=== PATIENT | male | born 1965 | race African-American/Black ===

== ENCOUNTER 2019-04-30 04:52 | Emergency (ER) | payer SELFPAY ==
[~2019-04-30] VITALS: Ht 177.8 cm; Wt 80.0 kg
--- NOTE | 2019-04-30 05:04 | PHYS DOC ---
Adult General Chief Complaint Chief Complaint: MECHANICAL FALL HPI HPI Patient is a 54 year old -[place] male who is brought to the ER by EMS due to a fall reportedly. EMS cannot provide much in the way of details. The patient appears to be intoxicated and he does admit to drinking alcohol last night; he states he drinks 2 beers. States that he fell when going from the living room to the bedroom. Complains of right wrist pain and also pain across his chest. He states that he could not breathe initially but this has since resolved. The patient is a very poor historian. He complains of a "throbbing" on the entire right side of his body. Blood pressure was soft and initially but has improved with IV fluid hydration. No reported recent sickness. The patient did defecate on himself. (RADHA AGRAWAL DO) Review of Systems Review of Systems All other systems were reviewed and found to be within normal limits, except as documented in this note. (RADHA AGRAWAL DO) Current Medications Current Medications Current Medications Medications (Trade) Dose Ordered Sig/Rob Start Time Stop Time Status Last Admin Dose Admin Ibuprofen (Motrin) 800 mg 1X ONCE 04/30/19 07:30 04/30/19 07:31 DC Sodium Chloride 1,000 ml @ 1,000 mls/hr 1X ONCE 04/30/19 05:15 04/30/19 06:14 DC 04/30/19 05:24 1,000 MLS/HR (BRYCE STARKS MD) Allergies Allergies Allergies Coded Allergies Type Severity Reaction Last Updated Verified No Known Drug Allergies 04/30/19 No (BRYCE STARKS MD) Physical Exam Physical Exam Constitutional: Well developed, well nourished, no acute distress, non-toxic appearance. [] HENT: Normocephalic, atraumatic, bilateral external ears normal, oropharynx moist, no oral exudates, nose normal. [] Eyes: PERRLA, EOMI, conjunctiva normal, no discharge. [] Neck: Normal range of motion, no tenderness, supple, no stridor. [] Cardiovascular:Heart rate regular rhythm, no murmur [] Lungs & Thorax: Bilateral breath sounds clear to auscultation [] Abdomen: Bowel sounds normal, soft, no tenderness, no masses, no pulsatile masses. [] Skin: Warm, dry, no erythema, no rash. [] Back: No tenderness, no CVA tenderness. [] Extremities: Tenderness palpation right wrist, no cyanosis, no clubbing, ROM intact, no edema. [] Neurologic: No focal neurologic deficits noted. Patient thought extremity. He does appear to be slightly intoxicated. (RADHA AGRAWAL DO) Current Patient Data Vital Signs Vital Signs Date Time Temp Pulse Resp B/P (MAP) Pulse Ox O2 Delivery O2 Flow Rate FiO2 04/30/19 06:27 85 18 97 04/30/19 04:52 98.5 102/59 (73) 98.5 (BRYCE STARSK MD) Lab Values Laboratory Tests Test 04/30/19 05:15 White Blood Count 3.0 x10^3/uL (4.0-11.0) L Red Blood Count 4.34 x10^6/uL (4.30-5.70) Hemoglobin 10.7 g/dL (13.0-17.5) L Hematocrit 34.3 % (39.0-53.0) L Mean Corpuscular Volume 79 fL (79-100) Mean Corpuscular Hemoglobin 25 pg (25-35) Mean Corpuscular Hemoglobin Concent 31 g/dL (31-37) Red Cell Distribution Width 20.2 % (11.5-14.5) H Platelet Count 85 x10^3/uL (140-400) L Neutrophils (%) (Auto) 29 % (31-73) L Lymphocytes (%) (Auto) 53 % (24-48) H Monocytes (%) (Auto) 10 % (0-9) H Eosinophils (%) (Auto) 7 % (0-3) H Basophils (%) (Auto) 1 % (0-3) Neutrophils # (Auto) 0.9 x10^3/uL (1.8-7.7) L Lymphocytes # (Auto) 1.6 x10^3/uL (1.0-4.8) Monocytes # (Auto) 0.3 x10^3/uL (0.0-1.1) Eosinophils # (Auto) 0.2 x10^3/uL (0.0-0.7) Basophils # (Auto) 0.0 x10^3/uL (0.0-0.2) Platelet Estimate Pending Sodium Level 145 mmol/L (136-145) Potassium Level 3.8 mmol/L (3.5-5.1) Chloride Level 107 mmol/L (98-107) Carbon Dioxide Level 25 mmol/L (21-32) Anion Gap 13 (6-14) Blood Urea Nitrogen 10 mg/dL (8-26) Creatinine 1.3 mg/dL (0.7-1.3) Estimated GFR (Cockcroft-Gault) 69.1 Glucose Level 148 mg/dL (70-99) H Calcium Level 7.8 mg/dL (8.5-10.1) L Troponin I Quantitative < 0.017 ng/mL (0.000-0.055) Ethyl Alcohol Level 283 mg/dL (0-10) H Laboratory Tests 04/30/19 05:15 Laboratory Tests 04/30/19 05:15 (BRYCE STARKS MD) Lab Values Laboratory Tests Test 04/30/19 05:15 White Blood Count 3.0 x10^3/uL (4.0-11.0) L Red Blood Count 4.34 x10^6/uL (4.30-5.70) Hemoglobin 10.7 g/dL (13.0-17.5) L Hematocrit 34.3 % (39.0-53.0) L Mean Corpuscular Volume 79 fL (79-100) Mean Corpuscular Hemoglobin 25 pg (25-35) Mean Corpuscular Hemoglobin Concent 31 g/dL (31-37) Red Cell Distribution Width 20.2 % (11.5-14.5) H Platelet Count 85 x10^3/uL (140-400) L Neutrophils (%) (Auto) 29 % (31-73) L Lymphocytes (%) (Auto) 53 % (24-48) H Monocytes (%) (Auto) 10 % (0-9) H Eosinophils (%) (Auto) 7 % (0-3) H Basophils (%) (Auto) 1 % (0-3) Neutrophils # (Auto) 0.9 x10^3/uL (1.8-7.7) L Lymphocytes # (Auto) 1.6 x10^3/uL (1.0-4.8) Monocytes # (Auto) 0.3 x10^3/uL (0.0-1.1) Eosinophils # (Auto) 0.2 x10^3/uL (0.0-0.7) Basophils # (Auto) 0.0 x10^3/uL (0.0-0.2) Platelet Estimate Pending Laboratory Tests 04/30/19 05:15 (RADHA AGRAWAL DO) EKG EKG []EKG shows sinus rhythm with no ST changes and a heart rate of 86 with normal intervals. (RADHA AGRAWAL DO) Radiology/Procedures Radiology/Procedures [] (RADHA AGRAWAL DO) Course & Med Decision Making Course & Med Decision Making Pertinent Labs and Imaging studies reviewed. (See chart for details) 0504: Patient seen for reported fall and subscapular pain in the right wrist along with some chest pain. His EKG is unremarkable. We'll initiate labs and check alcohol level as well. 0540: Nursing staff spoke with the patient's family he reports patient has a history of heavy alcohol abuse. He reportedly had a fall this morning in struck his head on the bed and was dazed momentarily without loss of consciousness. We'll order a CT scan of his head and C-spine. Transition of care to Dr. Starks at 0600. (RADHA AGRAWAL DO) Course & Med Decision Making @0739: [facility]600 for follow-up the CT report. Patient is sleeping without problem. CT head and cervical spine was negative ranchers exam right upper extremity x-ray did not show acute fracture. Patient complaining of pain of right upper extremity and ibuprofen was given. Blood alcohol was 283 and patient was alert and oriented and denied suicidal or homicidal ideation. Patient ambulated without problem. Plan discharge patient home with diagnosis of alcohol intoxication and fall. (BRYCE STARKS MD) Dragon Disclaimer Dragon Disclaimer This electronic medical record was generated, in whole or in part, using a voice recognition dictation system. (RADHA AGRAWAL DO) Departure Departure Impression: Primary Impression: Fall Additional Impression: Alcohol use Disposition: HOME, SELF-CARE (At 0740) Condition: STABLE Patient Instructions: Alcohol Problems, Fall Prevention and Home Safety Additional Instructions: Drink plenty of liquids Follow-up with your primary care physician in 3-5 days Return to ER if not getting better Scripts Ibuprofen (IBUPROFEN) 800 Mg Tablet 800 MG PO PRN Q8HRS PRN for INFLAMMATION, #20 TAB Prov: BRYCE STARKS MD 04/30/19 Problem Qualifiers RADHA AGRAWAL DO Apr 30, 2019 05:04 BRYCE STARKS MD Apr 30, 2019 07:41
[2019-04-30] MEDS ORDERED: IV NORMAL SALINE 1000ML BAG 1,000 ML IV ONE (05:15)
--- NOTE | 2019-04-30 05:29 | RAD ---
CHEST AP ONLY History: Chest pain Comparison: None. Findings: No consolidation or pleural effusion. Normal heart size. No pneumothorax. Prior median sternotomy. Impression: 1. No acute cardiopulmonary process. Electronically signed by: Shukri Ann DO (04/30/2019 5:26 AM) [id number]
[2019-04-30 05:31] LABS: BASO % 1 % (0-3); EOS # 0.2 x10^3/uL (0.0-0.7); EOS % 7 % (0-3); HEMATOCRIT 34.3 % (39.0-53.0); HEMOGLOBIN 10.7 g/dL (13.0-17.5); LYMPH # 1.6 x10^3/uL (1.0-4.8); LYMPH % 53 % (24-48); MEAN CORPUSCULAR HEMOGLOBIN 25 pg (25-35); MEAN CORPUSCULAR HGB CONC 31 g/dL (31-37); MEAN CORPUSCULAR VOLUME 79 fL (79-100); MONO # 0.3 x10^3/uL (0.0-1.1); MONO % 10 % (0-9); NEUT # 0.9 x10^3/uL (1.8-7.7); NEUT % 29 % (31-73); PLATELET COUNT 85 x10^3/uL (140-400); RED BLOOD COUNT 4.34 x10^6/uL (4.30-5.70); RED CELL DISTRIBUTION WIDTH 20.2 % (11.5-14.5)
--- NOTE | 2019-04-30 05:31 | RAD ---
WRIST 3V RIGHT History: Pain Technique: 3 views right wrist. Comparison: None. Findings: Normal alignment. No fracture. Soft tissues unremarkable. Impression: 1. No acute osseous abnormality. Electronically signed by: Shukri Ann DO (04/30/2019 5:28 AM) [id number]
[2019-04-30 05:51] LABS: CALCIUM 7.8 mg/dL (8.5-10.1); CREATININE 1.3 mg/dL (0.7-1.3); GFR 69.1; POTASSIUM 3.8 mmol/L (3.5-5.1)
--- NOTE | 2019-04-30 06:41 | RAD ---
CT HEAD AND CERVICAL SPINE WO History: Fall. Pain. Comparison: None. Technique: Noncontrast CT imaging was performed of the head and cervical spine. Coronal and sagittal reconstructions were performed. Exposure: One or more of the following individualized dose reduction techniques were utilized for this examination: 1. Automated exposure control 2. Adjustment of the mA and/or kV according to patient size 3. Use of iterative reconstruction technique. Findings: Head CT: No intracranial hemorrhage. No mass effect. No hydrocephalus. Mild brain parenchymal volume loss. Mild foci of decreased attenuation within the hemispheric white matter, most often due to chronic microvascular ischemia. Postoperative changes right globe. Imaged paranasal sinuses and mastoid air cells are clear. No acute calvarial fracture. Cervical spine CT: Reversal the normal cervical lordosis. Normal vertebral body height. No fracture. Moderate multilevel degenerative disc changes most prominent C5-C6 and C6-C7. Multilevel neuroforaminal narrowing. Mild multilevel canal narrowing. Soft tissues unremarkable. Impression: Head CT: 1. No acute intracranial abnormality. Cervical spine CT: 1. No acute fracture or subluxation of the cervical spine. Electronically signed by: Shukri Ann DO (04/30/2019 6:38 AM) [id number]
--- NOTE | 2019-04-30 07:04 | EKG ---
[facility] [address] [place] [address] Test Date: 2019-04-30 Test Time: 04:56:42 Pat Name: AMAURI ASENCIO Department: Room: Gender: M Head Waitress: : [id number] Requested By: RADHA AGRAWAL Order Number: [id number] Reading MD: Measurements Intervals [place] Rate: 86 P: 64 RI: 198 QRS: -31 QRSD: 84 T: 53 QT: 364 QTc: 439 Interpretive Statements SINUS RHYTHM ABNORMAL LEFT AXIS DEVIATION LEFT ANTERIOR FASCICULAR BLOCK QRS(T) CONTOUR ABNORMALITY CONSIDER ANTEROSEPTAL MYOCARDIAL DAMAGE ABNORMAL ECG RI6.01 No previous ECG available for comparison
[2019-04-30] MEDS ORDERED: IBUPROFEN 400 MG TABLET. PO ONE (07:30)
[2019-04-30] MEDS ORDERED: IBUP-1060 PO (07:41)
[2019-04-30 07:47] VITALS: BP 90/55
[2019-04-30 10:16] LABS: % EOS 8 % (0-5); % LYMPHS 57 % (24-48); % MONOS 4 % (0-10); % MYELOS 1 % (0-0); % SEGS 30 % (35-66); PLT ESTIMATE ADEQUATE (ADEQUATE)
== END 2019-04-30 07:57 | disposition home or self-care (01) ==
LOC: ER 04:52
DX: G89.11 Acute pain due to trauma (principal); M25.531 Pain in right wrist; R07.89 Other chest pain; F10.10 Alcohol abuse, uncomplicated; Z72.89 Other problems related to lifestyle; W18.39XA Other fall on same level, initial encounter; Y93.89 Activity, other specified; Y92.098 Other place in other non-institutional residence as the place of occurrence of the external cause; Y99.8 Other external cause status
CPT/HCPCS: 36415; 70450; 71045; 72125; 73110; 80048; 84484; 85007; 85025; 93005; 99285; G0480; J7030